=== PATIENT | male | born 1950 | race Caucasian/White ===

== ENCOUNTER 2018-10-20 11:43 | Emergency (ER) | payer MEDICARE, OTHER ==
[~2018-10-20] VITALS: Ht 177.8 cm; Wt 80.9 kg
[2018-10-20 11:49] VITALS: BP 142/91; PULSE 64; TEMP 97.6
[2018-10-20] MEDS ORDERED: COZAAR 50MG50 MG/TAB PO (13:45)
[2018-10-20] MEDS ORDERED: PROSCAR 5MG5 MG PO (13:45)
[2018-10-20] MEDS ORDERED: FLOMAX 0.40.4 MG/CAP PO (13:45)
[2018-10-20] MEDS ORDERED: PRILOSEC 20MG20 MG PO (13:45)
== END 2018-10-20 13:47 | disposition home or self-care (01) ==
LOC: COL.ER 11:43
DX: M79.661 Pain in right lower leg (principal); Z87.828 Personal history of other (healed) physical injury and trauma

== ENCOUNTER → 2023-07-30 | Outpatient (CLI) | payer MEDICARE ==
[~2023-07-30] VITALS: Ht 177.8 cm; Wt 79.5 kg
[~2023-07-30] MED LIST: COZAAR 50MG50 MG/TAB PO; COZAAR100 MG PO; DESYREL 100MG100 MG PO; FLOMAX 0.40.4 MG/CAP PO; LIPITOR 10MG10 MG PO; NATURAL MAGNES200 MG PO; PRILOSEC 20MG20 MG PO; PROBIOTIC BLEN1 EACH PO; PROSCAR 5MG5 MG PO
[2023-07-30 09:48] VITALS: BP 147/84; PULSE 54; TEMP 97.4
== END ==
LOC: COL.RAD 09:23
DX: I25.10 Atherosclerotic heart disease of native coronary artery without angina pectoris (principal)
CPT/HCPCS: A9500-JZ

== ENCOUNTER 2023-08-25 08:58 | Day surgery (SDC) | payer MEDICARE, OTHER ==
[~2023-08-25] VITALS: Ht 177.8 cm; Wt 80.4 kg
[2023-08-25] VITALS (10 sets, daily range): BP systolic 120–150; BP diastolic 70–99; PULSE 48–63; TEMP 98.5
[2023-08-25] MEDS ORDERED: 1/2 NS 1,000 ML IV SCH (09:30)
[2023-08-25 09:47] LABS: HEMOGLOBIN 14.6 g/dl (13.5-18.0); MEAN CELL VOLUME 92 fl (80.0-100.0); MEAN CORPUSCULAR HEMOGLOBIN 34 pg (27-31); MEAN CORPUSCULAR HGB CONC 37 g/dl (33.0-37.0); MEAN PLATELET VOLUME 10.7 fl (7.4-10.4); PLATELET COUNT 161 K/mm3 (130-400); RED BLOOD COUNT 4.35 M/mm3 (4.20-5.60); REDCELL DISTRIBUTION WIDTH-CV 12.4 % (11.5-14.5)
[2023-08-25 09:54] LABS: INR 1.1 (0.8-3.0); PROTHROMBIN TIME 11.7 SECONDS (9.7-12.8)
[2023-08-25 09:57] LABS: PARTIAL THROMBOPLASTIN TIME 30.7 SECONDS (26.0-37.0)
[2023-08-25 10:21] LABS: CALCIUM 8.8 mg/dL (8.4-10.2); CREATININE, serum 0.82 mg/dL (0.72-1.25); POTASSIUM 4.1 mEq/L (3.5-4.5)
--- NOTE | 2023-08-25 11:16 | NUR ---
SEE MERGE FOR PROCEDURE DOCUMENTATION
[2023-08-25] MEDS ORDERED: Heparin 1,000 UNITS/ML 10 ML Multi-Dose VIAL IV SCH (11:56)
[2023-08-25] MEDS ORDERED: Heparin 1,000 UNITS/ML 10 ML Multi-Dose VIAL IA SCH (11:57)
[2023-08-25] MEDS ORDERED: Nitroglycerin 100 MCG/ML (Cath Lab) 10 ML VIAL IA SCH (11:58)
[2023-08-25] MEDS ORDERED: Verapamil 2.5 MG/ML 2 ML VIAL INCOR SCH (11:59)
[2023-08-25] MEDS ORDERED: fentaNYL 50 MCG/ML 2 ML VIAL IV SCH (12:00)
[2023-08-25] MEDS ORDERED: Midazolam 2 MG/2 ML VIAL IV SCH (12:01)
[2023-08-25] MEDS ORDERED: Iohexol 350 - 100 ML VIAL INCOR ONE (12:02)
--- NOTE | 2023-08-25 12:25 | NUR ---
PATIENT ALERT AND ORIENTED, VSS. PATIENT TRANSFERRED TO BED INDEPENDENTLY AND TRANSPORTED TO [facility] VIA BED. VITAL SIGNS TAKEN ON ARRIVAL, VSS. RIGHT RADIAL SITE ASSESSED, CDI. R EXTREMITY ELEVATED ON PILLOW. CALL LIGHT PLACED WITHIN REACH, BED IN LOWEST POSITION, X3 SIDERAILS IN PLACE. TRANSFER OF CARE TO [facility].
--- NOTE | 2023-08-25 15:03 | NUR ---
Air was removed from TR band in 2 ml increments with no bleeding or complication. Rt radial access site dressed with folded 2x2 and gauze. Pt is steady on feet around room. IV DC'd, site wrapped with coban. He ate snack and meal tray during recovery period. DC instructions reviewed, pt expresses understanding. He has called for ride home, he will await arrival in room.
--- NOTE | 2023-08-25 15:50 | NUR ---
Pt assisted out to ride by wheelchair, with belongings. [facility] He remains free of complaints.
== END 2023-08-25 15:50 | disposition home or self-care (01) ==
LOC: COL.CAR 08:58
PROVIDERS: Internal Medicine Cardiovascular Disease
DX: R94.39 Abnormal result of other cardiovascular function study (principal); R07.9 Chest pain, unspecified; Z87.891 Personal history of nicotine dependence
CPT/HCPCS: J1644; J2250; J3010; Q9967